=== PATIENT | female | born 1945 | race Caucasian/White ===

== ENCOUNTER 2023-10-17 15:26 | Outpatient (CLI) | payer MEDICARE, MEDICAID ==
[~2023-10-17 15:26] MED LIST: BUDE10.23 INH; BUPR-317 PO; CELE-193 PO; CYCL-394 PO; DULO60CA34 PO; ECON30CR5 TOP; LEVO112T5 PO
[2023-10-17 16:26] LABS: ALBUMIN 3.4 G/DL (3.4-5.0); ANION GAP 4 (8-16); BLOOD UREA NITROGEN 18 MG/DL (7-18); BUN/CREATININE RATIO 13.6 (10.0-20.0); CALCIUM 9.5 MG/DL (8.5-10.1); CHLORIDE 106 MMOL/L (99-107); CREATININE 1.32 MG/DL (0.40-0.90); GLUCOSE 101 MG/DL (70-104); POTASSIUM 4.4 MMOL/L (3.5-5.1); SODIUM 138 MMOL/L (135-145); eGFR 39 ML/MIN
[2023-10-17 16:28] LABS: APTT 28 SECONDS (22-32); INR 1.1 INR; PROTHROMBIN TIME 11.5 SECONDS (9.0-12.0)
[2023-10-17 16:32] LABS: EOSINOPHILS # (AUTO) 0.2 X10'3 (0-0.9); LYMPHOCYTES # (AUTO) 1.2 X10'3 (1.1-4.8); MEAN PLATELET VOLUME 12.1 FL (7.4-10.4); MONOCYTES # (AUTO) 0.3 X10'3 (0-0.9); RED BLOOD COUNT 3.59 X10'6 (4.20-5.60)
[2023-10-17 16:35] LABS: BASOPHILS % (AUTO) 0.4 % (0-1); EOSINOPHILS % (AUTO) 2.8 % (0-6); HEMATOCRIT 34.9 % (35.0-45.0); HEMOGLOBIN 11.4 g/dl (12.0-16.0); LYMPHOCYTES % (AUTO) 19.6 % (21-51); MEAN CORPUSCULAR HEMOGLOBIN 31.8 PG (27.0-31.0); MEAN CORPUSCULAR HGB CONC 32.8 g/dL (33.0-36.5); MEAN CORPUSCULAR VOLUME 97.1 FL (78-98); MONOCYTES % (AUTO) 4.4 % (2-12); NEUTROPHILS # (AUTO) 4.4 X10'3 (1.8-7.7); NEUTROPHILS % (AUTO) 72.8 % (42-75); PLATELET COUNT 106 X10'3 (140-440); RED CELL DISTRIBUTION WIDTH 16.6 % (11.5-14.5); WHITE BLOOD COUNT 6.1 X10'3 (4.5-11.0)
[2023-10-17 19:06] LABS: ANISOCYTOSIS 1+; PLATELET ESTIMATE DECREASED
[2023-10-17 19:07] LABS: GIANT PLATELET FEW
[2023-10-17 19:09] LABS: BURR CELLS FEW; ELLIPTOCYTES FEW; HYPOCHROMASIA 1+; LARGE PLATELETS FEW
== END 2023-10-17 23:59 | disposition home or self-care (01) ==
LOC: LAB 15:26
PROVIDERS: ATTEND Internal Medicine Interventional Cardiology
DX: I48.91 Unspecified atrial fibrillation (principal); R07.9 Chest pain, unspecified; R06.02 Shortness of breath; R53.83 Other fatigue; G47.33 Obstructive sleep apnea (adult) (pediatric); F17.210 Nicotine dependence, cigarettes, uncomplicated; D69.3 Immune thrombocytopenic purpura; Z79.01 Long term (current) use of anticoagulants
CPT/HCPCS: 36415; 80048; 85008; 85025; 85610; 85730

== ENCOUNTER 2023-10-22 11:14 | Day surgery (SDC) | payer MEDICARE, MEDICAID ==
[2023-10-22] VITALS (12 sets, daily range): BP systolic 90–122; BP diastolic 40–65; PULSE 55–83; RESP 14–16; TEMP 97.8; O2SAT 97–100
[~2023-10-22] VITALS: Ht 154.9 cm; Wt 79.8 kg
[2023-10-22] MEDS ORDERED: fentaNYL/PF 50MCG/1 ML 2ML syringe IV ONE (11:50)
[2023-10-22] MEDS ORDERED: normal saline 1000ml 1,000 ML IV SCH (11:50)
[2023-10-22] MEDS ORDERED: MIDAZolam 1mg/ml 10ml vial IV ONE (11:50)
[2023-10-22] MEDS ORDERED: DOCU-21 PO ×2 (12:53→13:02)
[2023-10-22] MEDS ORDERED: NYST30CR34 TOP (12:53)
[2023-10-22] MEDS ORDERED: DULO30CA52 PO (12:53)
[2023-10-22] MEDS ORDERED: CLOB15CR11 TOP (12:53)
[2023-10-22] MEDS ORDERED: APIX5TAB3 PO (12:56)
[2023-10-22] MEDS ORDERED: MULT-1085 PO (12:56)
[2023-10-22] MEDS ORDERED: SOTA80TA46 PO (12:56)
[2023-10-22] MEDS ORDERED: CYCL5TAB PO (13:06)
== END 2023-10-22 14:55 | disposition home or self-care (01) ==
LOC: SSTAY O 11:14
PROVIDERS: ATTEND Student in an Organized Health Care Education/Training Program
DX: I48.91 Unspecified atrial fibrillation (principal); N18.9 Chronic kidney disease, unspecified; G47.33 Obstructive sleep apnea (adult) (pediatric); J45.909 Unspecified asthma, uncomplicated; E03.9 Hypothyroidism, unspecified; F17.290 Nicotine dependence, other tobacco product, uncomplicated; Z88.5 Allergy status to narcotic agent; Z88.2 Allergy status to sulfonamides; Z88.8 Allergy status to other drugs, medicaments and biological substances; Z79.01 Long term (current) use of anticoagulants; Z79.899 Other long term (current) drug therapy
CPT/HCPCS: 92960; 93005; J2250; J3010; J7030; A4620